=== PATIENT | male | born 1985 | race Caucasian/White ===

== ENCOUNTER 2021-02-04 12:38 | Inpatient (IN) | payer BC, SELFPAY ==
[~2021-02-04] VITALS: Ht 185.4 cm; Wt 124.3 kg
[2021-02-04 13:21] VITALS: BP 125/90
[2021-02-04 14:00] LABS: BASOPHILS # (AUTO) 0.2 K/uL (0.00-0.22); EOSINOPHILS # (AUTO) 0.1 K/uL (0-0.4); EOSINOPHILS % (AUTO) 0.7 % (0.0-4.0); HEMATOCRIT 47.8 % (36-52); HEMOGLOBIN 18.2 g/dL (12.0-18.0); LYMPHOCYTES # (AUTO) 2.4 K/uL (2.0-11.5); LYMPHOCYTES % (AUTO) 15.6 % (20.5-51.1); MEAN CORPUSCULAR HEMOGLOBIN 31 pg (27-31); MEAN CORPUSCULAR HGB CONC 38 g/dL (33-37); MEAN CORPUSCULAR VOLUME 82.4 fL (80-94); MONOCYTES # (AUTO) 0.8 K/uL (0.8-1.0); MONOCYTES % (AUTO) 5.2 % (1.7-9.3); NEUTROPHILS # (AUTO) 11.8 K/uL (1.8-7.7); NEUTROPHILS % (AUTO) 77.5 % (42.2-75.2); PLATELET COUNT (AUTO) 187 K/uL (140-450); RED CELL DISTRIBUTION WIDTH 13.9 % (11.6-13.7); WHITE BLOOD COUNT (AUTO) 15.2 K/uL (4.8-10.8)
--- NOTE | 2021-02-04 14:30 | NUR ---
35 Y/O M PRESENTS TO ED WITH EPIGASTRIC PAIN 6/10 INTENSITY STARTED YESTERDAY. PT STATES EATING STEAK AND 2 BEERS FOR LUNCH. THIS MORNING PAIN WORSENED. RECALLS TAKING PEPTO BISMOL THIS MORNING WITH NO RELIEF, VOMITED ONCE TODAY. DENIES DIARRHEA; SKIN IS PINK/WARM/DRY; AAOX4 WITH EVEN AND STEADY GAIT; LUNGS CLEAR BL; HR EVEN AND REGULAR; PT DENIES ANY FEVER, CP, SOB, OR COUGH AT THIS TIME; PATIENT STATES PAIN OF 9/10 AT THIS TIME; VSS; PATIENT POSITIONED FOR COMFORT; HOB ELEVATED; BEDRAILS UP X2; BED DOWN. ER MD MADE AWARE OF PT STATUS. PMH: DENIES MEDS: PEPTO BISMOL ALLERGIES: NKA
[2021-02-04 14:33] LABS: ANION GAP 21.6 (8-16); CARBON DIOXIDE 19.8 mmol/L (21-32); CREATININE 0.9 mg/dL (0.6-1.3); POTASSIUM 3.4 mmol/L (3.5-5.1); TOTAL BILIRUBIN 1.1 mg/dL (0.0-1.0)
[2021-02-04] MEDS ORDERED: ONDANSETRON 4 MG ODT PO ONE (14:45)
[2021-02-04] MEDS ORDERED: NACL 0.9% 2,000 ML IV SCH (14:45)
[2021-02-04] MEDS ORDERED: ALUMINUM HYD/MAG/SIMETHICONE 30 ML UDC PO ONE (14:45)
[2021-02-04] MEDS ORDERED: FAMOTIDINE 20 MG TAB PO ONE (14:45)
[2021-02-04] MEDS ORDERED: MORPHINE SULFATE 4 MG/ML SYR IVP SCH (15:00)
[2021-02-04] MEDS ORDERED: ONDANSETRON 4 MG/2 ML VIAL IVP SCH (15:00)
--- NOTE | 2021-02-04 15:13 | NUR ---
PT WAS SWABBED FOR MRSA AND ABI COVID.
--- NOTE | 2021-02-04 15:16 | NUR ---
Ultrasound at bedside.
--- NOTE | 2021-02-04 16:36 | NUR ---
Patient will be admitted to care of DR BURT. Admited to [facility]. Will go to room 111A. Belongings list completed. Report tO MAINE RUFFIN.
[2021-02-04] MEDS ORDERED: ONDANSETRON 4 MG/2 ML VIAL IM/IVP PRN (16:45)
[2021-02-04] MEDS ORDERED: guaiFENesin DM 200/20 MG-10 ML 10 ML UDC PO PRN (16:45)
[2021-02-04] MEDS ORDERED: DOCUSATE SODIUM 100 MG GELCAP PO PRN (16:45)
[2021-02-04] MEDS ORDERED: ACETAMINOPHEN 325 MG TAB PO PRN (16:45)
[2021-02-04] MEDS ORDERED: POTASSIUM CHLORIDE 10 MEQ TABER PO PRN (16:45)
[2021-02-04] MEDS ORDERED: HYDROcodone/APAP 7.5/325 MG 1 TAB PO PRN (16:45)
[2021-02-04] MEDS ORDERED: DEXTROSE 50% 50 ML SYR IVP PRN (16:50)
[2021-02-04 17:00] VITALS: BP 131/77
--- NOTE | 2021-02-04 17:00 | NUR ---
PT ARRIVED TO UNIT VIA WHEELCHAIR. PT IS AWAKE AND ALERT. A&OX4. AMBULATED TO BED WITH STEADY GAIT. ON RA WITH BREATHING UNLABORED. VS ARE STABLE. SKIN IS WARM, DRY, AND INTACT. IS AT BEDSIDE. PT IS STABLE. STATES HE HAS PAIN IN ABD AT A SCALE OF 7/10, WILL MEDICATE.
[2021-02-04 17:06] LABS: APPEARANCE,URINE CLEAR (CLEAR); BILIRUBIN,URINE 1+ (NEGATIVE); BLOOD, URINE 2+ (NEGATIVE); COLOR,URINE YELLOW (YELLOW); LEUKOCYTE ESTERASE ,URINE NEGATIVE (NEGATIVE); NITRITE, URINE NEGATIVE (NEGATIVE); PH,URINE 5.5 (5.0-9.0); UGLUCOSE 3+ (NEGATIVE)
[2021-02-04] MEDS: DEXT 5% / NACL 0.9% 500 ML IV SCH ×2 (17:12→18:41)
[2021-02-04] MEDS: MORPHINE SULFATE 2 MG/ML SYR IVP PRN (17:17)
--- NOTE | 2021-02-04 17:17 | NUR ---
PT STATES PAIN AT A SCALE OF 7/10 IN THE MEDIAL ABDOMEN RADIATING TO THE RIGHT ABDOMEN. PT STATES THE PAIN A SHARP, STABBING PAIN. MEDICATED WITH MORPHINE IVP. BP WAS 131/79 PRIOR TO ADMINISTRATION OF MEDICATION. WILL MONITOR PAIN.
[2021-02-04 17:23] LABS: AMYLASE 195 U/L (25-115); FREE T4 (FREE THYROXINE) 1.04 ng/dL (0.76-1.46); HDL CHOLESTEROL 17 mg/dL (40-60); MAGNESIUM 1.7 mg/dL (1.8-2.4); PHOSPHORUS 3.2 mg/dL (2.5-4.9); THYROID STIMULATING HORMONE 1.01 uIU/mL (0.34-3.74); TRIGLYCERIDES 1503 mg/dL (30-150)
[2021-02-04 17:29] LABS: BARBITURATE, URINE NEGATIVE ng/ml (NEG <=200); BENZODIAZEPINE, URINE NEGATIVE ng/mL (NEG <=200); CANNABINOID, URINE POSITIVE ng/mL (NEG <=50); COCAINE, URINE NEGATIVE ng/mL (NEG <=300); OPIATE, URINE NEGATIVE ng/mL (NEG <=2000); PHENCYCLIDINE SCREEN,URINE NEGATIVE ng/mL (NEG <=25)
--- NOTE | 2021-02-04 18:29 | NUR ---
INFORMED DR. BURT THAT THE MAGNESIUM LEVEL IS 1.7. DR. BURT GAVE TELEPHONE ORDER FOR MAGNESIUM OXIDE 800 MG DAILY WITH ONE DOSE TO BE GIVEN NOW.
[2021-02-04] MEDS ORDERED: MAGNESIUM OXIDE 400 MG TAB PO SCH (18:35)
--- NOTE | 2021-02-04 18:40 | NUR ---
MAGNESIUM OXIDE 800 MG WAS GIVEN PO FOR MAGNESIUM LEVEL OF 1.7. KDUR 40 MEQ PO WAS GIVEN FOR POTASSIUM LEVEL OF 3.4. MEDICATION EDUCATION WAS PROVIDED AND PT VERBALIZED UNDERSTANDING.
--- NOTE | 2021-02-04 19:15 | NUR ---
ENDORSED PT TO ANALYTICAL STATISTICIAN NURSE FOR CONTINUITY OF CARE. PT IS STABLE. PLAN OF CARE DISCUSSED.
--- NOTE | 2021-02-04 19:16 | NUR ---
RECEIVED REPORT FROM MORNING SHIFT FOR CONTINUITY OF CARE. PATIENT IS STABLE IN BED. A&OX4. VERBALLY RESPONSIVE AND ABLE TO COMMUNICATE NEEDS. DENIES PAIN AT THIS TIME. NO APPARENT S/SX OF ACUTE DISTRESS. RESPIRATIONS EVEN AND UNLABORED. ON RA WITH AN O2 SAT OF 98%. LEFT AC 20G PATENT/INTACT WITH D5NS INFUSING AT 200 ML/HR. PATIENT IS CONTINENT. SKIN IS INTACT. PLAN OF CARE AND WHITE COMMUNICATION BOARD UPDATED. BED IN LOW/LOCKED POSITION. CALL LIGHT WITHIN REACH. ENCOURAGE PATIENT TO CALL FOR ANY NEEDS/ASSISTANCE. WILL CONTINUE TO MONITOR.
--- NOTE | 2021-02-04 20:00 | NUR ---
Patient's Plan of Care was discussed and reviewed with DOOR TO DOOR SALES REPRESENTATIVE: ARNALDO JACKSON
[2021-02-04] MEDS: BLOOD GLUCOSE MONITORING 1 DEV DEV FS SCH (20:16)
[2021-02-04] MEDS: INSULIN LISPRO SLIDING SCALE 100 UNITS/ML VIAL SUBQ PRN (20:16)
--- NOTE | 2021-02-04 20:16 | NUR ---
CHECKED PATIENT'S BLOOD SUGAR. COVERAGE NEEDED PER MD ORDER. PATIENT DENIES PAIN AT THIS TIME. PATIENT CONCERNED ABOUT FEVER AND CHECKED TEMPERATURE OF 99.0 WNL. PATIENT VERBALIZED THAT LAYERS OF BLANKET MADE HIM FEEL HOT. ALL BLANKETS ARE TAKEN OUT. RESPIRATIONS EVEN AND UNLABORED. NO APPARENT S/SX OF ACUTE DISTRESS. WHITE BOARD COMMUNICATION UPDATED. ALL SAFETY MEASURES IN PLACE. CALL LIGHT WITHIN REACH. WILL CONTINUE TO MONITOR.
[2021-02-04] MEDS: ZOLPIDEM 5 MG TAB PO PRN (20:26)
[2021-02-04 21:47] LABS: WBC,URINE NONE SEEN /HPF (0-5)
[2021-02-04] MEDS: KETOROLAC 30 MG/ML VIAL IVP SCH (22:15)
--- NOTE | 2021-02-04 22:15 | NUR ---
AUGUSTIN SHARMA ENDORSED IVF EMPTY. CHECKED MD'S ORDER AND IVF DC'D. INFORMED PATIENT AND VERBALIZED UNDERSTANDING. PATIENT DENIES PAIN AT THIS TIME. RESPIRATIONS EVEN AND UNLABORED. NO APPARENT S/SX OF ACUTE DISTRESS. WHITE BOARD COMMUNICATION UPDATED. ALL SAFETY MEASURES IN PLACE. CALL LIGHT WITHIN REACH. WILL CONTINUE TO MONITOR.
--- NOTE | 2021-02-05 00:15 | NUR ---
CHECKED PATIENT. STABLE AND ASLEEP IN SUPINE POSITION. CHEST RISING AND FALLING. RESPIRATIONS EVEN AND UNLABORED. NO APPARENT S/SX OF ACUTE DISTRESS. WHITE BOARD COMMUNICATION UPDATED. ALL SAFETY MEASURES IN PLACE. CALL LIGHT WITHIN REACH. WILL CONTINUE TO MONITOR.
--- NOTE | 2021-02-05 02:15 | NUR ---
ROUNDED ON PATIENT. STABLE AND AWAKE. PATIENT STATED HE WOKE UP BECAUSE OF THE IV MACHINE BEEPING. FIXED IV MACHINE. PATIENT DENIES PAIN AT THIS TIME. RESPIRATIONS EVEN AND UNLABORED. NO APPARENT S/SX OF ACUTE DISTRESS. WHITE BOARD COMMUNICATION UPDATED. ALL SAFETY MEASURES IN PLACE. CALL LIGHT WITHIN REACH. WILL CONTINUE TO MONITOR.
[2021-02-05 04:00] VITALS: BP 115/77
--- NOTE | 2021-02-05 04:15 | NUR ---
OBTAINED VITAL SIGNS. VS WNL. PATIENT VERBALIZES MILD PAIN 2/10 IN ABDOMINAL AREA. REMINDED PATIENT THAT SCHEDULED TORADOL WILL BE ADMINISTERD AT 0500. RESPIRATIONS EVEN AND UNLABORED. NO APPARENT S/SX OF ACUTE DISTRESS. WHITE BOARD COMMUNICATION UPDATED. ALL SAFETY MEASURES IN PLACE. CALL LIGHT WITHIN REACH. WILL CONTINUE TO MONITOR.
[2021-02-05] MEDS: KETOROLAC 30 MG/ML VIAL IVP SCH ×2 (05:22→12:04)
--- NOTE | 2021-02-05 05:30 | NUR ---
PATIENT C/O SLIGHT DISCOMFORT IN IV SITE. FLUSHED IV AND NO INFILTRATION NOTED. CHANGED TAPE AROUND IV SITE TO RE-SECURE. PATIENT VERBALIZED IT FEELS MUCH BETTER. PATIENT DENIES PAIN AT THIS TIME. RESPIRATIONS EVEN AND UNLABORED. WHITE COMMUNICATION BOARD UPDATED. ALL SAFETY MEASURES IN PLACE. CALL LIGHT WITHIN REACH. WILL CONTINUE TO MONITOR.
[2021-02-05] MEDS: BLOOD GLUCOSE MONITORING 1 DEV DEV FS SCH ×4 (06:30→20:02)
[2021-02-05] MEDS: INSULIN LISPRO SLIDING SCALE 100 UNITS/ML VIAL SUBQ PRN ×4 (06:31→20:05)
[2021-02-05 07:06] LABS: CARBON DIOXIDE 19.1 mmol/L (21-32); CREATININE 1.1 mg/dL (0.6-1.3); POTASSIUM 4.1 mmol/L (3.5-5.1)
[2021-02-05 07:08] LABS: T4 (THYROXINE) 8.2 ug/dL (4.5-12.0)
[2021-02-05 07:14] LABS: BASOPHILS % (AUTO) 0.2 % (0.0-2.0); EOSINOPHILS # (AUTO) 0.1 K/uL (0-0.4); EOSINOPHILS % (AUTO) 0.5 % (0.0-4.0); HEMATOCRIT 45.9 % (36-52); LYMPHOCYTES # (AUTO) 1.3 K/uL (2.0-11.5); LYMPHOCYTES % (AUTO) 13.2 % (20.5-51.1); MEAN CORPUSCULAR HEMOGLOBIN 29 pg (27-31); MEAN CORPUSCULAR HGB CONC 35 g/dL (33-37); MEAN CORPUSCULAR VOLUME 83.3 fL (80-94); MONOCYTES # (AUTO) 0.6 K/uL (0.8-1.0); MONOCYTES % (AUTO) 5.6 % (1.7-9.3); NEUTROPHILS # (AUTO) 8.2 K/uL (1.8-7.7); NEUTROPHILS % (AUTO) 80.5 % (42.2-75.2); PLATELET COUNT (AUTO) 123 K/uL (140-450); RED BLOOD CELL COUNT(AUTO) 5.51 MIL/uL (4.20-6.10); WHITE BLOOD COUNT (AUTO) 10.2 K/uL (4.8-10.8)
--- NOTE | 2021-02-05 07:15 | NUR ---
ENDORSED PATIENT TO MORNING SHIFT FOR CONTINUITY OF CARE. PATIENT IS STABLE.
--- NOTE | 2021-02-05 07:20 | NUR ---
RECEIVED BEDSIDE REPORT FROM FACILITY ENGINEER NURSE FOR CONTINUITY OF CARE. PT IS AWAKE AND ALERT. A&OX4. ON RA WITH BREATHING UNLABORED. IV IS INTACT ON THE LEFT AC 20 GAUGE SALINE LOCKED. NO DISTRESS NOTED. AMBULATORY INDEPENDENTLY. PT IS STABLE. DENIES PAIN AT THIS TIME. PLAN OF CARE DISCUSSED.
[2021-02-05 08:00] VITALS: BP 127/90
--- NOTE | 2021-02-05 08:03 | NUR ---
PATIENT HAS BEEN SCREENED AND CATEGORIZED MODERATE NUTRITION RISK. PATIENT WILL BE SEEN WITHIN 3-5 DAYS OF ADMISSION. 02/05/21 02/09/[address]
[2021-02-05] MEDS: ATORVASTATIN 20 MG TAB PO SCH (08:49)
[2021-02-05] MEDS: MAGNESIUM OXIDE 400 MG TAB PO SCH (08:49)
[2021-02-05] MEDS: PANTOPRAZOLE 40 MG TABEC PO SCH (08:49)
--- NOTE | 2021-02-05 09:30 | NUR ---
PT IS AWAKE. NO DISTRESS NOTED. BREATHING UNLABORED ON RA. PT DENIES PAIN AT THIS TIME. IS AT BEDSIDE. WILL CONTINUE TO MONITOR.
[2021-02-05] MEDS ORDERED: TRAM50TA1 PO (09:31)
--- NOTE | 2021-02-05 10:00 | NUR ---
PT IS AWAKE AND AMBULATED TO THE SHOWER. PT SHOWERED AND RETURNED BACK TO BED. IV FLUIDS WERE CONNECTED AND CONTINUED.
--- NOTE | 2021-02-05 11:44 | NUR ---
RECEIVED VERBAL ORDER FROM DR. BURT TO RESTART FLUIDS D5NS AT 200 ML/HR IV THEY WERE DISCONTINUED LAST NIGHT.
[2021-02-05] MEDS ORDERED: DEXT 5% / NACL 0.9% 500 ML IV SCH (11:45)
--- NOTE | 2021-02-05 12:04 | NUR ---
PT'S BS READING IS 232. PT WAS GIVEN 4 UNITS HUMALOG INSULIN PER SLIDING SCALE. WILL CONTINUE TO MONITOR PT.
--- NOTE | 2021-02-05 14:00 | NUR ---
PT WAS CHANGED AND REPOSITIONED. PT TOLERATED THIS WELL. NEW DIAPER IN PLACE. IV IS INFUSING ORDERED. NO RESPIRATORY DISTRESS NOTED OR COUGHING. PT IS STABLE. WILL CONTINUE TO MONITOR. Addendum: 02/05/21 at 1544 by Marlyn Gordon RN WRONG PT.
--- NOTE | 2021-02-05 14:00 | NUR ---
PT IS AWAKE AND UP TO THE RESTROOM. AMBULATING WITH STEADY GAIT. PT HAD A BM AND IS NOW BACK IN BED. PT IS STABLE AND DENYING PAIN AT THIS TIME.
--- NOTE | 2021-02-05 15:42 | NUR ---
ROUNDED ON PT. HE IS ASLEEP. O2 SAT ON RA 87%. PT PLACED BACK ON 2L O2 NC AND O2 SAT IS NOW 95%. NO SOB NOTED. DIAPER IS DRY AND IN PLACE. PT IS STABLE. Addendum: 02/05/21 at 1545 by Marlyn Gordon RN WRONG PT.
--- NOTE | 2021-02-05 15:46 | NUR ---
PT IS AWAKE, LAYING IN SEMI FOWLERS POSITION. NO DISTRESS OR PAIN NOTED. IV FLUIDS ARE INFUSING ORDERED. PT STABLE.
[2021-02-05 16:00] VITALS: BP_SYST 123; BP_SYST 130; BP_DIAS 63; BP_DIAS 84
--- NOTE | 2021-02-05 16:25 | NUR ---
PT IS STATING PAIN AT A SCALE OF 6/10 IN THE ABD. PT WAS GIVEN NORCO FOR PAIN. WILL CONTINUE TO MONITOR PAIN.
--- NOTE | 2021-02-05 16:32 | NUR ---
PT WAS GIVEN 6 UNITS HUMALOG INSULIN PER SLIDING SCALE. BS READING WAS 262. MEDICATION EDUCATION PROVIDED AND PT VERBALIZED UNDERSTANDING.
--- NOTE | 2021-02-05 17:30 | NUR ---
REASSESSED PAIN AND PT IS SLEEPING. NO DISTRESS NOTED. IV FLUIDS ARE INFUSING. WILL MONITOR PT.
--- NOTE | 2021-02-05 19:10 | NUR ---
ENDORSED PT TO LINE CLOSER NURSE FOR CONTINUITY OF CARE. PT IS STABLE AT THIS TIME. PLAN OF CARE DISCUSSED.
[2021-02-05] MEDS: DEXT 5% / NACL 0.9% 1,000 ML IV SCH (19:30)
--- NOTE | 2021-02-05 19:56 | NUR ---
PATIENT WAS RECEIVED IN BED ALERT AND ORIENTED X 4. DENIES PAIN.
[2021-02-06] VITALS: BP 120/80
--- NOTE | 2021-02-06 | NUR ---
PATIENT WAS ASLEEP.
[2021-02-06] MEDS: ZOLPIDEM 5 MG TAB PO PRN (00:28)
[2021-02-06] MEDS: MORPHINE SULFATE 2 MG/ML SYR IVP PRN ×2 (00:28→06:45)
--- NOTE | 2021-02-06 00:29 | NUR ---
PATIENT C/O ABD PAIN 10/23 MEDICATED WITH MORPHINE 2 MG IVP, ALSO REQUESTED HIS SLEEPING PILL, AMBIEN 5 MG WAS GIVEN PO, TOLERATED WELL BY THE PATIENT.
[2021-02-06] MEDS: DEXT 5% / NACL 0.9% 1,000 ML IV SCH ×2 (02:00→07:00)
--- NOTE | 2021-02-06 06:00 | NUR ---
TU=[id number], 4 UNITS REG INSULIN WAS GIVEN SQ IN HIS R UPPER ARM, TOLERATED WELL
[2021-02-06 07:07] LABS: BASOPHILS % (AUTO) 0.2 % (0.0-2.0); EOSINOPHILS # (AUTO) 0.1 K/uL (0-0.4); EOSINOPHILS % (AUTO) 1.6 % (0.0-4.0); HEMATOCRIT 39.4 % (36-52); HEMOGLOBIN 13.7 g/dL (12.0-18.0); LYMPHOCYTES # (AUTO) 1.2 K/uL (2.0-11.5); LYMPHOCYTES % (AUTO) 14.5 % (20.5-51.1); MEAN CORPUSCULAR HEMOGLOBIN 29 pg (27-31); MEAN CORPUSCULAR HGB CONC 35 g/dL (33-37); MEAN CORPUSCULAR VOLUME 83.6 fL (80-94); MONOCYTES # (AUTO) 0.6 K/uL (0.8-1.0); MONOCYTES % (AUTO) 6.9 % (1.7-9.3); NEUTROPHILS # (AUTO) 6.4 K/uL (1.8-7.7); NEUTROPHILS % (AUTO) 76.8 % (42.2-75.2); PLATELET COUNT (AUTO) 99 K/uL (140-450); RED BLOOD CELL COUNT(AUTO) 4.71 MIL/uL (4.20-6.10); RED CELL DISTRIBUTION WIDTH 14.2 % (11.6-13.7); WHITE BLOOD COUNT (AUTO) 8.3 K/uL (4.8-10.8)
[2021-02-06] MEDS: INSULIN LISPRO SLIDING SCALE 100 UNITS/ML VIAL SUBQ PRN ×2 (07:11→11:56)
[2021-02-06] MEDS: BLOOD GLUCOSE MONITORING 1 DEV DEV FS SCH ×2 (07:11→11:50)
[2021-02-06 07:14] LABS: CARBON DIOXIDE 21.6 mmol/L (21-32); CREATININE 0.8 mg/dL (0.6-1.3); POTASSIUM 3.6 mmol/L (3.5-5.1)
--- NOTE | 2021-02-06 07:20 | NUR ---
RECEIVED REPORT FROM CHIEF OF PRODUCTION NURSE FOR CONTINUITY OF CARE. PT. AWAKE AND ALERT NO ACUTE DISTRESS NOTED. PT. HAS RIGHT FA 20 G RUNNING AT 175ML/H CALL LIGHT WITH IN REACH . ALL SAFETY MEASURE IN PLACE. WILL CONTINUE TO MONITOR.
--- NOTE | 2021-02-06 07:40 | NUR ---
02/05/211999 REVIEWED, WILL CONTINUE WITH CURRENT PLAN OF CARE. MNURALD
[2021-02-06 08:00] VITALS: BP 133/88
[2021-02-06] MEDS ORDERED: METF-350 PO (08:54)
[2021-02-06] MEDS ORDERED: HYDR-5191 PO (08:54)
[2021-02-06] MEDS: MAGNESIUM OXIDE 400 MG TAB PO SCH (09:15)
[2021-02-06] MEDS: ATORVASTATIN 20 MG TAB PO SCH (09:15)
--- NOTE | 2021-02-06 09:15 | NUR ---
PT ON BED ALERT NOT ON ANY DISTRESS. GIVEN ALL DUE MEDICATION TOLERATED WELL.DENIES ANY PAIN. ALL SAFETY MEASURE IN PLACE. CALL LIGHT WITH IN EASY REACH. WILL CONTINUE TO MONITOR.
[2021-02-06] MEDS: PANTOPRAZOLE 40 MG TABEC PO SCH (09:16)
--- NOTE | 2021-02-06 11:19 | NUR ---
PT IN BED ALERT AND AWAKE. NO SIGN OF ANY DISTRESS. DENIES ANY PAIN. AT BEDSIDE. ALL SAFETY MEASURE IN PLACE. CALL LIGHT WITH IN EASY REACH. WILL CONTINUE TO MONITOR.
--- NOTE | 2021-02-06 13:10 | NUR ---
PT ALERT AND AWAKE. NO SIGN OF ANY DISTRESS. DENIES ANY PAIN. AT BEDSIDE. ALL SAFETY MEASURE IN PLACE. CALL LIGHT WITHIN REACH. WILL CONTINUE TO MONITOR.
--- NOTE | 2021-02-06 13:45 | NUR ---
PT ALERT AND ORIENTED GIVEN ALL THE DISCHARGE INSTRUCTION. VERBALIZATION OF UNDERSTANDING. WRIST BAND AND IV REMOVED IV CATHETER INTACT. ALL BELONGING TAKEN. REFUSED TO WHEEL OUT SIDE. PT AMBULATE WITH TO GO OUTSIDE.
== END 2021-02-06 15:51 | disposition home or self-care (01) | DRG 871 ==
LOC: MED 12:38 → MTU 16:14
PROVIDERS: ADMIT Family Medicine; ATTEND Family Medicine
DX: A41.9 Sepsis, unspecified organism (principal); K85.90 Acute pancreatitis without necrosis or infection, unspecified; E87.1 Hypo-osmolality and hyponatremia; E11.9 Type 2 diabetes mellitus without complications; E86.0 Dehydration; E87.6 Hypokalemia; K52.9 Noninfective gastroenteritis and colitis, unspecified; K76.0 Fatty (change of) liver, not elsewhere classified; Z20.822 Contact with and (suspected) exposure to COVID-19; E78.2 Mixed hyperlipidemia
CPT/HCPCS: 36415; 71045; 76705; 80048; 80053; 80305; 81001; 82150; 82948; 83036; 83690; 83735; 83880; 84100; 84436; 84439; 84443; 84479; 84484; 85025; 85610; 85730; 87040; 87081; 87086; 93005; 96361; 96374; 96375; 99285; J0696; J1885; J2270; J2405; J7060; Q0092